=== PATIENT | male | born 1955 | race Caucasian/White ===

== ENCOUNTER 2019-11-28 17:40 | Inpatient (IN) | payer OTHER, MEDICARE, SELFPAY ==
[2019-11-28] VITALS (9 sets, daily range): BP systolic 145–165; BP diastolic 70–87; PULSE 62–70; RESP 22–40; TEMP 37.5–38.4; O2SAT 94–95; BMI 29.7
[2019-11-28] MEDS: SODIUM CHLORIDE 0.9% 1,000 ML 1000 ML IV (18:05)
--- NOTE | 2019-11-28 18:10 | DI.RAD.S_ITS ---
PROCEDURE: XR CHEST 1V INDICATIONS: suspected sepsis TECHNIQUE: One view of the chest was acquired. COMPARISON: None. FINDINGS: Surgical changes and devices: None. Lungs and pleura: Lungs are clear. No pleural effusions or pneumothorax. Mediastinum: Mediastinal contours appear normal. Heart size is normal. Bones and chest wall: No suspicious bony lesions. Overlying soft tissues appear unremarkable. IMPRESSION: No acute cardiopulmonary disease process. Dictated by: Adeola Hercules MD, PhD on 11/28/2019 at 18:27 Approved by: Adeola Hercules MD, PhD on 11/28/2019 at 18:27
[2019-11-28 18:18] LABS: Add Manual Diff / Slide Review NO; Basophils Absolute Auto 0 /uL (0-100); Basophils Percent Auto 0.9 % (0-2); Eosinophils Absolute Auto 0 /uL (0-450); Eosinophils Percent Auto 0.3 % (2-4); Hematocrit 48.9 % (41-53); Lymphocytes Absolute Auto 1000 /uL (1100-4500); Lymphocytes Percent Auto 23.2 % (25-40); Mean Corpuscular HGB Conc 34.7 % (30-36); Mean Corpuscular Hemoglobin 33.2 PG (26-34); Mean Corpuscular Volume 95.9 fL (80-100); Monocytes Absolute Auto 400 /uL (0-900); Monocytes Percent Auto 8.8 % (3-14); Neutrophils Absolute Auto 2900 /uL (1500-7000); Neutrophils Percent Auto 66.8 % (50-75); Platelet Count 108 X10^3/uL (150-400); Red Cell Distribution Width 12.5 % (11.6-14.8); White Blood Cell Count 4.4 X10^3/uL (4.5-11.0)
[2019-11-28 18:22] LABS: INR 1.1 (0.9-1.3); Prothrombin Time 12.9 SECONDS (10.1-12.7)
--- NOTE | 2019-11-28 18:22 | ED_ITS ---
HPI - SOB/Dyspnea General Chief Complaint: Shortness of Breath/Dyspnea Stated Complaint: Exposed to Covid 19, SOB/Cough/Fever Time Seen by Provider: 11/28/19 18:05 Source: patient Mode of arrival: Ambulatory Limitations: no limitations History of Present Illness HPI Narrative: This is a 64-year-old male comes to the emergency department complaint of fevers, shortness of breath and cough patient states he has had i ncreasing shortness of breath over last 2 days. He describes mild states he has noticed he has take a deeper breath and when he is talking on the phone people have noted that he is short of breath. He has had fevers up to 102 over the last several days. He has had 2 positive coronavirus 19 contacts. Patient states that he is had some mild headaches, he has had mild nasal congestion but states he typically has seasonal allergies, he has been taking loratadine for this. Patient has not had any chest pain. He has had some mild nausea. No vomiting. Some very mild diarrhea. No constipation urinary a poor he denies any swelling in his extremities. He states his only medical issues or seasonal allergies, denies prior surgical history. No tobacco, 2-3 glasses of wine nightly, no illicit. He is and lives with his . Related Data Home Medications Medication Instructions Recorded Confirmed acetaminophen [Tylenol] 650 mg PO QID PRN 11/28/19 11/28/19 ibuprofen 600 mg PO Q8H PRN 11/28/19 11/28/19 Allergies Allergy/AdvReac Type Severity Reaction Status Date / Time bacitracin Allergy Mild Rash Verified 11/28/19 18:14 Review of Systems Review of Systems ROS Unobtainable: All systems reviewed & are unremarkable except as noted in HPI and below Patient History Medical History (Updated 11/28/19 @ 20:54 by Ned Johnson MD) History of skin cancer (Acute) Seasonal allergies (Acute) Surgical History (Updated 11/28/19 @ 20:54 by Ned Johnson MD) History of laminectomy (Acute) History of tonsillectomy (Acute) Family History (Updated 11/28/19 @ 20:55 by Ned Johnson MD) Father Alcoholism Mother Diabetes mellitus Social History household members: spouse Smoking Status: Never smoker Smoking Status: Never smoker alcohol intake frequency: 0-2 drinks per day Substance Use Type: does not use Exam Narrative Exam Narrative: GEN: well nourished, male, alert and oriented x 3, patient appears to be in moderate distress. HEENT: Atraumatic, pupils are equal round reactive to light, extraocular movements are intact. HEART: Regular rate and rhythm without murmur, clicks, rubs. No carotid bruits, pulses are equal in upper and lower extremities LUNGS:Lungs mildly decreased, no wheezes, rales, crackles, chest moves symmetrically, positive for tachypnea. No accessory muscle use. ABD:bowel sounds normal, soft, non-tender, no guarding, rebound, rigidity, no masses noted, no hepatosplenomegaly :No CVA tenderness MSCL: Non-tender, no muscle atrophy, muscles strength 5/5 upper and lower extremities, full range of motion, normal gait NEURO:CN 2-12 intact, sensation normal SKIN: Rash, no erythema. Initial Vital Signs Initial Vital Signs: Vital Signs Temperature 99.5 F 11/28/19 17:41 Pulse Rate 67 11/28/19 17:41 Respiratory Rate 40 H 11/28/19 17:41 Blood Pressure 165/87 H 11/28/19 17:41 Pulse Oximetry 95 11/28/19 17:41 Scores PERC Score Age greater than or equal to 50 years: Yes Heart rate greater than or equal to 100 bpm: No Room Air O2 Sat less than 95%: No Unilateral leg swelling: No Recent trauma or surgery: No Hemoptysis: No Prior PE or DVT: No Hormone Use: No Total PERC Score: 1 Course Orders Ordered: ED Orders 11/28/19 18:00 BNP [NT-proBNP (BNP-Adult 18+)] Stat C-Reactive Protein Quant Stat Complete Blood Count AUTO DIFF Stat Comprehensive Metabolic Panel Stat Influenza A & B (PCR) Stat Lactate (Lactic Acid) Stat Lipase Stat Partial Thromboplastin Time Stat Procalcitonin Stat Prothrombin Time INR Stat Troponin & CK Cardiac Panel Stat 11/28/19 18:05 Blood Culture Stat 11/28/19 18:10 XR chest 1V Stat RT Consult Eval and Treat Now 11/28/19 18:24 EKG-12 Lead Stat 11/28/19 18:55 CT angio chest PE protocol Stat Acetaminophen (Tylenol) 650 mg PO Q6HR PRN PRN Reason: Fever/Mild Pain (1-3) Enoxaparin Sodium (Lovenox) [address] [facility] Hydroxychloroquine Sulfate (Plaquenil) 200 mg PO BIDWM MOSES Sodium Chloride (Normal Saline 0.9%) 1,000 mls @ 50 mls/hr IV CONT MOSES Last Admin: 11/28/19 21:41 Dose: 50 mls/hr Documented by: CHAN Naloxone HCl (Narcan) 0.2 mg IV Q2MIN PRN PRN Reason: Opiate Reversal Discontinued Medications Acetaminophen (Tylenol) 650 mg PO NOW ONE Stop: 11/28/19 19:47 Last Admin: 11/28/19 19:52 Dose: 650 mg Documented by: TANVI Sodium Chloride (Normal Saline 0.9%) 1,000 mls @ 1,000 mls/hr IV BOLUS ONE Stop: 11/28/19 19:09 Last Infusion: 11/28/19 19:10 Dose: 0 mls/hr Documented by: Admin: 11/28/19 18:05 Dose: 1,000 mls/hr Documented by: TANVI Vital Signs Vital signs: Vital Signs - 8 hr 11/28/19 17:41 11/28/19 18:19 11/28/19 18:36 Temperature 99.5 F Pulse Rate 67 70 63 Respiratory Rate 40 H 38 H 34 H Blood Pressure 165/87 H Blood Pressure [Left Arm] 146/73 H Pulse Oximetry 95 94 94 11/28/19 19:08 11/28/19 19:30 11/28/19 19:52 Temperature 99.5 F Pulse Rate 66 62 Respiratory Rate 36 H 32 H Blood Pressure Blood Pressure [Left Arm] 154/70 H 152/70 H Pulse Oximetry 95 95 MDM - SOB/Dyspnea Lab Data Attestation: I reviewed the patient's lab results. Result diagrams: 11/28/19 18:00 11/28/19 18:00 Labs: Lab Results 11/28/19 11/28/19 11/28/19 Range/Units 18:00 18:00 18:00 WBC 4.4 L (4.5-11.0) X10^3/uL RBC 5.10 (4.5-5.9) X10^6/uL Hgb 17.0 (13.5-17.5) g/dL Hct 48.9 (41-53) % MCV 95.9 (80-100) fL MCH 33.2 (26-34) PG MCHC 34.7 (30-36) % RDW 12.5 (11.6-14.8) % Plt Count 108 L (150-400) X10^3/uL Neut % (Auto) 66.8 (50-75) % Lymph % (Auto) 23.2 L (25-40) % [place] % (Auto) 8.8 (3-14) % Eos % (Auto) 0.3 L (2-4) % Baso % (Auto) 0.9 (0-2) % Neut # (Auto) 2900 (7264-7130) /uL Lymph # (Auto) 1000 L (3015-8244) /uL [place] # (Auto) 400 (0-900) /uL Eos # (Auto) 0 (0-450) /uL Baso # (Auto) 0 (0-100) /uL PT 12.9 H (10.1-12.7) SECONDS INR 1.1 (0.9-1.3) APTT 33 (26.4-36.2) SECONDS Sodium 133 L (137-145) mmol/L Potassium 4.2 (3.4-5.1) mmol/L Chloride 96 L (98-107) mmol/L Carbon Dioxide 26 (22-32) mmol/L BUN 11 (9-20) mg/dL Creatinine 0.94 (0.66-1.25) mg/dL Estimated GFR > 60.0 (>60) mL/min BUN/Creatinine Ratio 11.7 (6-22) Glucose 108 (80-110) mg/dL Lactate (0.7-2.1) mmol/L Calcium 8.5 (8.4-10.2) mg/dL Total Bilirubin 0.5 (0.2-1.3) mg/dL AST 82 H (17-59) IU/L ALT 48 (<50) IU/L Alkaline Phosphatase 52 (38-126) U/L Total Creatine Kinase 333 H (55-170) U/L CK-MB (CK-2) 1.00 (<2.37) ng/mL CK-MB (CK-2) Rel Index 0.3 L (1.5-5.0) % Troponin I < 0.012 (0.01-0.034) ng/mL C-Reactive Protein 4.3 H (<1.0) mg/dL NT-Pro-B Natriuret Pep 50 (<125) pg/mL Total Protein 7.7 (6.3-8.2) g/dL Albumin 4.4 (3.5-5.0) g/dL Globulin 3.3 (1.7-4.1) g/dL Albumin/Globulin Ratio 1.3 (1.0-2.8) Lipase 107 (23-300) U/L Procalcitonin (<0.5) ng/mL Influenza A (RT-PCR) (NEGATIVE) Influenza B (RT-PCR) (NEGATIVE) 11/28/19 11/28/19 11/28/19 Range/Units 18:00 18:00 18:00 WBC (4.5-11.0) X10^3/uL RBC (4.5-5.9) X10^6/uL Hgb (13.5-17.5) g/dL Hct (41-53) % MCV (80-100) fL MCH (26-34) PG MCHC (30-36) % RDW (11.6-14.8) % Plt Count (150-400) X10^3/uL Neut % (Auto) (50-75) % Lymph % (Auto) (25-40) % [place] % (Auto) (3-14) % Eos % (Auto) (2-4) % Baso % (Auto) (0-2) % Neut # (Auto) (8131-9952) /uL Lymph # (Auto) (0085-2490) /uL [place] # (Auto) (0-900) /uL Eos # (Auto) (0-450) /uL Baso # (Auto) (0-100) /uL PT (10.1-12.7) SECONDS INR (0.9-1.3) APTT (26.4-36.2) SECONDS Sodium (137-145) mmol/L Potassium (3.4-5.1) mmol/L Chloride (98-107) mmol/L Carbon Dioxide (22-32) mmol/L BUN (9-20) mg/dL Creatinine (0.66-1.25) mg/dL Estimated GFR (>60) mL/min BUN/Creatinine Ratio (6-22) Glucose (80-110) mg/dL Lactate 1.1 (0.7-2.1) mmol/L Calcium (8.4-10.2) mg/dL Total Bilirubin (0.2-1.3) mg/dL AST (17-59) IU/L ALT (<50) IU/L Alkaline Phosphatase (38-126) U/L Total Creatine Kinase (55-170) U/L CK-MB (CK-2) (<2.37) ng/mL CK-MB (CK-2) Rel Index (1.5-5.0) % Troponin I (0.01-0.034) ng/mL C-Reactive Protein (<1.0) mg/dL NT-Pro-B Natriuret Pep (<125) pg/mL Total Protein (6.3-8.2) g/dL Albumin (3.5-5.0) g/dL Globulin (1.7-4.1) g/dL Albumin/Globulin Ratio (1.0-2.8) Lipase (23-300) U/L Procalcitonin 0.08 (<0.5) ng/mL Influenza A (RT-PCR) Flu a negative (NEGATIVE) Influenza B (RT-PCR) Flu b negative (NEGATIVE) Imaging Data Chest x-ray: Radiologist's Impression: [address] [address] XRay Report Signed Patient: Vlad Gan Mira#: [id number] : 3Acct:[id number] Age/Sex: 64 / MDate of Service: 11/28/19 Loc: ED Accession Number: [id number] Procedure: XR chest 1V Ordering Provider: Fanta Pennington D.O. PROCEDURE: XR CHEST 1V INDICATIONS: suspected sepsis TECHNIQUE: One view of the chest was acquired. COMPARISON: None. FINDINGS: Surgical changes and devices: None. Lungs and pleura: Lungs are clear. No pleural effusions or pneumothorax. Mediastinum: Mediastinal contours appear normal. Heart size is normal. Bones and chest wall: No suspicious bony lesions. Overlying soft tissues ap pear unremarkable. IMPRESSION: No acute cardiopulmonary disease process. Dictated by: Adeola Hercules MD, PhD on 11/28/2019 at 18:27 Approved by: Adeola Hercules MD, PhD on 11/28/2019 at 18:27 CT scan - chest: Radiologist's Impression: [address] [address] [address] Scan Report Signed Patient: Vlad Gan JMR#: [id number] : 3Acct:[id number] Age/Sex: 64 / MDate of Service: 11/28/19 Loc: ED Accession Number: [id number] Procedure: CT angio chest PE protocol Ordering Provider: Fanta Pennington D.O. PROCEDURE: CT ANGIO CHEST PE PROTOCOL INDICATIONS: sob, tachypnea, travel, covid vs pe TECHNIQUE: After the administration of intravenous contrast, 2 mm thick sections acquired from the pulmonary apices to the posterior costophrenic angles. 3-dimensional maximum intensity projection (MIP) coronal and sagittal reformats were then acquired through the thorax. For radiation dose reduction, the following was used: automated exposure control, adjustment of mA and/or kV according to patient size. COMPARISON: None. FINDINGS: Image quality: Excellent. Pulmonary arteries: Pulmonary arteries are normal in size, and demonstrate no intraluminal filling defects to suggest central pulmonary embolism. Lungs and pleura: Multiple groundglass opacities are noted in the lungs bilaterally. Several of the groundglass opacities and associated interstitial prominence. Several of the groundglass opacities a rounded contours. Groundglass opacities are probably peripheral. No pleural effusions or pneumothorax. Central and peripheral airways are patent. Mediastinum: Heart size is normal, without pericardial effusion. No mediastinal or hilar adenopathy. Thoracic aorta is normal in caliber and enhancement. Esophagus is normal in caliber, without hiatal hernia. Bones and chest wall: No suspicious bony lesions. Ribs and thoracic spine appear intact throughout. Thyroid gland is within normal limits. No axillary or supraclavicular adenopathy. Abdomen: Visualized upper abdominal solid organs appear normal in the early arterial phase of enhancement. IMPRESSION: 1. No pulmonary embolus. 2. Multiple bilateral lung groundglass opacities with scattered in radiograph appearance concerning for Covid-19 pneumonia. Dictated by: Adeola Hercules MD, PhD on 11/28/2019 at 19:18 Approved by: Adeola Hercules MD, PhD on 11/28/2019 at 19:24 ECG Data Attestation: I personally reviewed and interpreted this ECG as follows: Prior ECG tracings: not available for review Interpretation: Sinus rhythm with a rate of 67 P are 158 QRS of 92 and QTC of 420. No ST elevation, nonspecific change. MDM Narrative Medical decision making narrative: This is a 64-year-old male who comes in with complaint of fever, shortness of breath and positive coronavirus-19 contacts. Initial chest x-ray is negative. Patient is afebrile in the department but states that he had antipyretic several hours prior to arrival. He states that he had been in [place] recently with travel. My suspicion is that patient has coronavirus 19 his shortness of breath and tachypnea but with his recent travel plan for CT study for PE rule out. Patient's labs show leukopenia with low lymphocyte count. Platelets are 108, sodium is 133 with chloride of 96 and AST is 82 creatinine and electrolytes are otherwise normal. CK is 333 with a C- reactive protein elevated 4.3. Stroke is negative with no acute findings on EKG and procalcitonin is negative. Blood cultures are pending. Influenza is negative and coronavirus testing is pending and will likely be several days before resulted. Although patient's CT does show suspicious bilateral pneumonia consistent with a coronavirus [address] Johnson regarding suspected coronavirus pneumonia, the patient does have pneumonia on CT although not seen on CXR, he has not been hypoxic but he has been tachypneic throughout his stay typically in the 30-40 range which makes me concerned that patient could have a acute decompensation. He accepts plan for observation. Patient was updated and comfortable with the plan. We did review patient's POLST status and he is full code. Discharge Plan Departure Patient Disposition: Admitted as Observation Clinical Impression: Suspected 2019 novel coronavirus infection Pneumonia Qualifiers: Pneumonia type: due to unspecified organism Laterality: bilateral Discharge Date/Time: 11/28/19 20:32 Admit Date/Time: 11/28/19 20:03 Admit Provider: Ned Johnson
[2019-11-28 18:25] LABS: PTT Partial Thromboplastin Tim 33 SECONDS (26.4-36.2)
[2019-11-28 18:27] LABS: Lactate (Lactic Acid) 1.1 mmol/L (0.7-2.1)
[2019-11-28 18:31] LABS: Alanine Aminotransferase 48 IU/L (<50); Albumin 4.4 g/dL (3.5-5.0); Albumin Globulin Ratio 1.3 (1.0-2.8); Alkaline Phosphatase 52 U/L (38-126); Aspartate Aminotransferase 82 IU/L (17-59); BUN Creatinine Ratio 11.7 (6-22); Bilirubin Total 0.5 mg/dL (0.2-1.3); Blood Urea Nitrogen 11 mg/dL (9-20); C-Reactive Protein Quant 4.3 mg/dL (<1.0); Calcium 8.5 mg/dL (8.4-10.2); Carbon Dioxide 26 mmol/L (22-32); Chloride 96 mmol/L (98-107); Creatine Kinase 333 U/L (55-170); Estimated Glomerular Filt Rate > 60.0 mL/min (>60); Globulin 3.3 g/dL (1.7-4.1); Glucose 108 mg/dL (80-110); HEMOLYSIS 16 (0-50); Lipase 107 U/L (23-300); Potassium 4.2 mmol/L (3.4-5.1); Sodium 133 mmol/L (137-145); Total Protein 7.7 g/dL (6.3-8.2)
[2019-11-28 18:40] LABS: Troponin I < 0.012 ng/mL (0.01-0.034)
[2019-11-28 18:43] LABS: Procalcitonin 0.08 ng/mL (<0.5)
[2019-11-28 18:44] LABS: NT-proBNP (BNP-Adult 18+) 50 pg/mL (<125)
[2019-11-28 18:55] LABS: Influenza A - CEPHEID Flu A NEGATIVE (NEGATIVE); Influenza B - CEPHEID Flu B NEGATIVE (NEGATIVE)
--- NOTE | 2019-11-28 18:55 | DI.CT.S_ITS ---
PROCEDURE: CT ANGIO CHEST PE PROTOCOL INDICATIONS: sob, tachypnea, travel, covid vs pe TECHNIQUE: After the administration of intravenous contrast, 2 mm thick sections acquired from the pulmonary apices to the posterior costophrenic angles. 3-dimensional maximum intensity projection (MIP) coronal and sagittal reformats were then acquired through the thorax. For radiation dose reduction, the following was used: automated exposure control, adjustment of mA and/or kV according to patient size. COMPARISON: None. FINDINGS: Image quality: Excellent. Pulmonary arteries: Pulmonary arteries are normal in size, and demonstrate no intraluminal filling defects to suggest central pulmonary embolism. Lungs and pleura: Multiple groundglass opacities are noted in the lungs bilaterally. Several of the groundglass opacities and associated interstitial prominence. Several of the groundglass opacities a rounded contours. Groundglass opacities are probably peripheral. No pleural effusions or pneumothorax. Central and peripheral airways are patent. Mediastinum: Heart size is normal, without pericardial effusion. No mediastinal or hilar adenopathy. Thoracic aorta is normal in caliber and enhancement. Esophagus is normal in caliber, without hiatal hernia. Bones and chest wall: No suspicious bony lesions. Ribs and thoracic spine appear intact throughout. Thyroid gland is within normal limits. No axillary or supraclavicular adenopathy. Abdomen: Visualized upper abdominal solid organs appear normal in the early arterial phase of enhancement. IMPRESSION: 1. No pulmonary embolus. 2. Multiple bilateral lung groundglass opacities with scattered in radiograph appearance concerning for Covid-19 pneumonia. Dictated by: Adeola Hercules MD, PhD on 11/28/2019 at 19:18 Approved by: Adeola Hercules MD, PhD on 11/28/2019 at 19:24
[2019-11-28 18:56] LABS: CKMB % Relative Index 0.3 % (1.5-5.0)
[2019-11-28] MEDS: ACETAMINOPHEN 325 MG TABLET 650 MG PO (19:52)
--- NOTE | 2019-11-28 20:48 | PM.HP.1 ---
History of Present Illness History of Present Illness Date Patient Seen: 11/28/19 Time Patient Seen: 20:48 Chief complaint: Exposed to Covid 19, SOB/Cough/Fever Narrative: This is a 64 year old male with a fever of 104.3 and shortness of breath. He has had 2 direct Covid19 exposures this past week. At baseline he is quite healthy with only seasonal allergies and allergy medicines used prn. He lives during the week in [place] where he works for the [employer] and then on the weekend lives up here. During the last week he has been exposed to 2 cases of suspected Covid19 including his (mild symptoms) who participated in a choir practice that has led to at least 30 positive doss virus tests and 1 earlier today. He also was exposed through a contractor who's child apparently had the disease this last week. He developed a fever of 104. 3 on November 15 with the 1st symptom being runny nose and just a very mild cough. He presented to the emergency department today because he was becoming more short of breath. His CRP is 4.3 with a classic ground-glass appearance on the chest CT. He is at 95% on room air but appears to be mildly dyspneic and tachypneic in the 30-40 range on presentation. His white count is 4.4 with negative influenza testing and a procalcitonin of 0.08. The CRP is elevated at 4.3. Patient History Medical History (Updated 11/28/19 @ 20:54 by Ned Johnson MD) History of skin cancer (Acute) Seasonal allergies (Acute) Surgical History (Updated 11/28/19 @ 20:54 by Ned Johnson MD) History of laminectomy (Acute) History of tonsillectomy (Acute) Family & Social History Family History (Updated 11/28/19 @ 20:55 by Ned Johnson MD) Father Alcoholism Mother Diabetes mellitus Family history unavailable: No Safety & Behavioral: Feels Safe in Current Yes Environment Been Physically Hurt or No Threatened By a Person Tobacco & Substance use: Smoking Status Never smoker alcohol intake frequency 0-2 drinks per day Substance Use Type does not use Meds Home Medications and Allergies Home Medications Medication Instructions Recorded Confirmed Type acetaminophen [Tylenol] 650 mg PO QID PRN 11/28/19 11/28/19 History ibuprofen 600 mg PO Q8H PRN 11/28/19 11/28/19 History Allergies Allergy/AdvReac Type Severity Reaction Status Date / Time bacitracin Allergy Mild Rash Verified 11/28/19 18:14 Review of Systems Review of Systems Narrative: Positive for high fevers, shortness of breath and a mild cough. Negative for chest pain, nausea, vomiting, belly pain, bleeding, rash, dysuria, headaches, seizures, diarrhea, trouble talking, trouble walking, new allergies. ROS: Yes All systems reviewed with the patient and are negative except as otherwise documented Exam Vital Signs (past 8 hours): - 11/28/19 17:41 11/28/19 18:19 11/28/19 18:36 Temperature 99.5 F Pulse Rate 67 70 63 Respiratory Rate 40 H 38 H 34 H Blood Pressure 165/87 H Blood Pressure [Left Arm] 146/73 H Pulse Oximetry 95 94 94 11/28/19 19:08 11/28/19 19:30 11/28/19 19:52 Temperature 99.5 F Pulse Rate 66 62 Respiratory Rate 36 H 32 H Blood Pressure Blood Pressure [Left Arm] 154/70 H 152/70 H Pulse Oximetry 95 95 11/28/19 20:07 Temperature Pulse Rate 66 Respiratory Rate 27 H Blood Pressure Blood Pressure [Left Arm] 154/72 H Pulse Oximetry 94 Oxygen Delivery Method Room Air Narrative Exam Narrative: Alert and oriented X 3 with moderately increased respiratory effort/distress. Intervals are equally round reactive to light and accommodation. Extraocular muscles are intact. Sclerae are pink and nonicteric. No lymph nodes are felt head, neck, supraclavicular area. JVD is less than 6 cm. No carotid bruits are heard. There is no thyromegaly. Heart is regular rate and rhythm without murmur. Lungs are clear to auscultation bilaterally. Abdomen is soft, bowel sounds positive, nontender, no organomegaly. Extremities have no ankle edema. Skin has no rash or jaundice. Neuro exam. Cranial nerves 2-12 tested intact. There is no tremor. Motor function is 5/5 throughout. There is no asterixis or signs of tremor/withdrawal. Objective Labs Result Diagrams: 11/28/19 18:00 11/28/19 18:00 Labs: Laboratory Results - last 24 hr 11/28/19 11/28/19 11/28/19 18:00 18:00 18:00 WBC 4.4 L RBC 5.10 Hgb 17.0 Hct 48.9 MCV 95.9 MCH 33.2 MCHC 34.7 RDW 12.5 Plt Count 108 L Neut % (Auto) 66.8 Lymph % (Auto) 23.2 L [place] % (Auto) 8.8 Eos % (Auto) 0.3 L Baso % (Auto) 0.9 Neut # (Auto) 2900 Lymph # (Auto) 1000 L [place] # (Auto) 400 Eos # (Auto) 0 Baso # (Auto) 0 PT 12.9 H INR 1.1 APTT 33 Sodium 133 L Potassium 4.2 Chloride 96 L Carbon Dioxide 26 BUN 11 Creatinine 0.94 Estimated GFR > 60.0 BUN/Creatinine Ratio 11.7 Glucose 108 Lactate Calcium 8.5 Total Bilirubin 0.5 AST 82 H ALT 48 Alkaline Phosphatase 52 Total Creatine Kinase 333 H CK-MB (CK-2) 1.00 CK-MB (CK-2) Rel Index 0.3 L Troponin I < 0.012 C-Reactive Protein 4.3 H NT-Pro-B Natriuret Pep 50 Total Protein 7.7 Albumin 4.4 Globulin 3.3 Albumin/Globulin Ratio 1.3 Lipase 107 Procalcitonin Influenza A (RT-PCR) Influenza B (RT-PCR) 11/28/19 11/28/19 11/28/19 18:00 18:00 18:00 WBC RBC Hgb Hct MCV MCH MCHC RDW Plt Count Neut % (Auto) Lymph % (Auto) [place] % (Auto) Eos % (Auto) Baso % (Auto) Neut # (Auto) Lymph # (Auto) [place] # (Auto) Eos # (Auto) Baso # (Auto) PT INR APTT Sodium Potassium Chloride Carbon Dioxide BUN Creatinine Estimated GFR BUN/Creatinine Ratio Glucose Lactate 1.1 Calcium Total Bilirubin AST ALT Alkaline Phosphatase Total Creatine Kinase CK-MB (CK-2) CK-MB (CK-2) Rel Index Troponin I C-Reactive Protein NT-Pro-B Natriuret Pep Total Protein Albumin Globulin Albumin/Globulin Ratio Lipase Procalcitonin 0.08 Influenza A (RT-PCR) Flu a negative Influenza B (RT-PCR) Flu b negative Assessment & Plan Assessment & Plan narrative: Viral Pneumonitis, Presumed Covid 19, acute, present on admission - Continue close oxygen monitoring, begin on Plaquenil, Covid swab done - With his classic CT appearance and his multiple direct exposures he is unlikely to be negative for Covid 19 and in fact a negative result should probably be considered a false negative. - If he deteriorates he would be placed on high flow oxygen as a first step. He is full code. - Respiratory isolation and precautions - Multiple bilateral ground glass opacities on Chest CT with negative CXR 11/27. - CRP 4.3, repeat 12/29 - Influenza A and B swabs are negative -despite his lack of hypoxia he appears to be significantly more short of breath today and so is not considered safe for discharge home at this time. Daily Alcohol use, chronic, present on admission - Watch closely for alcohol withdrawal
--- NOTE | 2019-11-28 21:22 | PC.NURSE ---
2100 Pt arrived via wheelchair, was able to ambulate to bed. Introduced myself as primary nurse in care. Vitals taken, pt oriented to room and call light. Cooling measures, with cool cloth on head and axillary ice packs, bilaterally. Pt requests to be able to sleep. Bed low and locked, call light within reach, will continue to monitor.
[2019-11-28] MEDS: SODIUM CHLORIDE 0.9% 1,000 ML 50 ML IV (21:41)
[2019-11-29] VITALS (10 sets, daily range): BP systolic 105–129; BP diastolic 56–78; PULSE 52–60; RESP 18–30; TEMP 36.9–37.7; O2SAT 93–98
[2019-11-29 05:05] LABS: Add Manual Diff / Slide Review NO; Basophils Absolute Auto 0 /uL (0-100); Basophils Percent Auto 0.8 % (0-2); Eosinophils Absolute Auto 0 /uL (0-450); Eosinophils Percent Auto 0.1 % (2-4); Hematocrit 46.2 % (41-53); Hemoglobin 15.9 g/dL (13.5-17.5); Lymphocytes Absolute Auto 1500 /uL (1100-4500); Lymphocytes Percent Auto 35.5 % (25-40); Mean Corpuscular HGB Conc 34.4 % (30-36); Mean Corpuscular Hemoglobin 32.9 PG (26-34); Mean Corpuscular Volume 95.8 fL (80-100); Monocytes Absolute Auto 400 /uL (0-900); Monocytes Percent Auto 10.7 % (3-14); Neutrophils Absolute Auto 2200 /uL (1500-7000); Neutrophils Percent Auto 52.9 % (50-75); Platelet Count 92 X10^3/uL (150-400); Red Blood Cell Count 4.83 X10^6/uL (4.5-5.9); Red Cell Distribution Width 12.6 % (11.6-14.8); White Blood Cell Count 4.1 X10^3/uL (4.5-11.0)
[2019-11-29 05:18] LABS: Alanine Aminotransferase 56 IU/L (<50); Albumin 3.7 g/dL (3.5-5.0); Albumin Globulin Ratio 1.3 (1.0-2.8); Alkaline Phosphatase 40 U/L (38-126); Aspartate Aminotransferase 89 IU/L (17-59); BUN Creatinine Ratio 9.4 (6-22); Bilirubin Total 0.5 mg/dL (0.2-1.3); Blood Urea Nitrogen 9 mg/dL (9-20); C-Reactive Protein Quant 4.4 mg/dL (<1.0); Calcium 8.3 mg/dL (8.4-10.2); Carbon Dioxide 28 mmol/L (22-32); Chloride 101 mmol/L (98-107); Estimated Glomerular Filt Rate > 60.0 mL/min (>60); Globulin 2.8 g/dL (1.7-4.1); Glucose 101 mg/dL (80-110); HEMOLYSIS < 15 (0-50); Potassium 4.7 mmol/L (3.4-5.1); Sodium 135 mmol/L (137-145); Total Protein 6.5 g/dL (6.3-8.2)
[2019-11-29 05:27] LABS: Troponin I 0.024 ng/mL (0.01-0.034)
--- NOTE | 2019-11-29 06:43 | PC.NURSE ---
Door Worker Note-Patient remains tachypneic with RR in 20s-30s, SpO2 >92% while awake, but decreased to <90% while asleep, placed on 2L NC from 0120 to 0500, intermittent non-productive cough, fine crackles auscultated throughout lungs. SB/SR, BBB. Tylenol given at midnight for headache and temp 99.6, temp in am 98.6, says headache has improved. In Droplet precautions.
[2019-11-29] MEDS: HYDROXYCHLOROQUINE 200 MG TABLET PO ×2 (08:38→18:00)
[2019-11-29] MEDS: ENOXAPARIN 40 MG/0.4 ML SYRINGE SUBCUT (08:38)
[2019-11-29] MEDS: ACETAMINOPHEN 325 MG TABLET 650 MG PO ×3 (08:38→18:00)
--- NOTE | 2019-11-29 08:42 | CM.DANOTE ---
DCP: Case received, EMR reviewed and looked at recent notes. Patient is currently in isolation secondary to COVD-19 rule out. Was able to obtain information from EMR in order to complete DCP assessment. Assessment was completed with information currently available. Patient s a 64 year old male who admitted yesterday evening to the care of the hospitalist team. PCP: Patient is from [place], unknown at this time who PCP is. Payer: [facility]. Patient came to the hospital via private vehicle secondary to cough, fever, as well as shortness of breath. Patient holds current diagnosis of pneumonia, which showed up on C.T. scan, and is also here for potential complications of COVID-19. Results are pending. Patient has been exposed to two other individuals with COVID-19, one who is his . Patient works in [place], for the city, and comes up here on week-ends. His was exposed to COVID-19, while singing in her choir, and according to notes, she had mild symptoms. Looking at the history, patient is alert and oriented, independent, does drink daily alcohol. P: DCP to continue to follow closely. Patient is here being monitored for any respiratory complications. He should be able to go home when he is medically stable, and will need to self-isolate. Amalia Garcia RN/Estimating Engineer
[2019-11-29] MEDS: AZITHROMYCIN 500 MG in DEXTROSE 5% IN WATER 250 ML IV (09:39)
[2019-11-29 11:09] LABS: Adenovirus Not Detected (Not Detect); Bordetella pertussis Not Detected (Not Detect); Chlamydophila pneumoniae Not Detected (Not Detect); Coronavirus 229E Not Detected (Not Detect); Coronavirus HKU1 Not Detected (Not Detect); Coronavirus NL 63 Not Detected (Not Detect); Coronavirus OC43 Not Detected (Not Detect); Human Metapneumovirus Not Detected (Not Detect); Human Rhinovirus/Enterovirus Not Detected (Not Detect); Influenza A Not Detected (Not Detect); Influenza B Not Detected (Not Detect); Mycoplasma pneumoniae Not Detected (Not Detect); Parainfluenza Virus 1 Not Detected (Not Detect); Parainfluenza Virus 2 Not Detected (Not Detect); Parainfluenza Virus 3 Not Detected (Not Detect); Parainfluenza Virus 4 Not Detected (Not Detect); Respiratory Syncytial Virus Not Detected (Not Detect)
--- NOTE | 2019-11-29 18:37 | PM.PN.1 ---
Subjective Subjective Date Patient Seen: 11/29/19 Interval history: Vlad Gan is a 64-year-old male without any significant medical history other than seasonal allergies who presented to the ED for shortness of breath and fever with to known exposures to COVID-19. The patient is resting in bed and in no acute distress. He is no longer severely tachypneic. He continues to endosrse itchy throat, shortness of breath and mildly productive cough. He is fatigued and has myalgias. He appears to be splinting. He is no longer febrile. He has no other complaints and denies headache, chest pain, abdominal pain, nausea, vomiting, fever, chills, dysuria, diarrhea or constipation. He is voiding and eliminating without difficulty. Exam Vital Signs (past 8 hours): - 11/29/19 12:00 11/29/19 15:54 11/29/19 18:00 Temperature 99.6 F 98.5 F 99.3 F Pulse Rate 55 L 53 L Respiratory Rate 20 30 H Blood Pressure 112/56 L 126/76 Pulse Oximetry 93 98 Oxygen Delivery Method Room Air Oxygen Flow Rate 0 Narrative Exam Narrative: General: Older male lying in bed and in no acute distress, appears older than stated age and acutely ill, mildly flushed, well-developed, well-nourished, appropriately interactive. HEENT: Normocephalic, atraumatic. External ears without defect. Pupils equal, round, and reactive to light. Anicteric sclerae, moist conjunctivae, and no lid lag. Oropharynx free of erythema and cobble stoning with moist mucosa. Neck: Supple with full range of motion. No lymphadenopathy or thyromegaly. Cardiovascular: Regular rate and rhythm without murmurs, rubs, or gallops appreciated Pulmonary: Diminished throughout but clear to auscultation bilaterally with occasional wheeze. No crackles or rhonchi. Normal respiratory effort with no use of accessory muscles. Abdomen: Soft, bowel sounds present, nontender, nondistended. No hepatosplenomegaly or masses appreciated. Extremities: No clubbing, cyanosis, or edema. Skin: Normal temperature, turgor, and texture; no rash, ulcers, or subcutaneous nodules appreciated. Neurological: Cranial nerves grossly intact. Psychiatric: Normal mood and affect. Alert and oriented to person, place, and time. Objective Labs Result Diagrams: 11/30/19 04:36 11/30/19 04:36 Labs: Laboratory Results - last 24 hr 11/28/19 11/28/19 11/28/19 18:00 18:00 18:00 WBC RBC Hgb Hct MCV MCH MCHC RDW Plt Count Neut % (Auto) Lymph % (Auto) [place] % (Auto) Eos % (Auto) Baso % (Auto) Neut # (Auto) Lymph # (Auto) [place] # (Auto) Eos # (Auto) Baso # (Auto) Sodium Potassium Chloride Carbon Dioxide BUN Creatinine Estimated GFR BUN/Creatinine Ratio Glucose Calcium Total Bilirubin AST ALT Alkaline Phosphatase CK-MB (CK-2) 1.00 CK-MB (CK-2) Rel Index 0.3 L Troponin I < 0.012 C-Reactive Protein NT-Pro-B Natriuret Pep 50 Total Protein Albumin Globulin Albumin/Globulin Ratio Procalcitonin 0.08 Chlamy pneumoniae PCR Adenovirus (PCR) B.parapertussis DNA PCR Coronavirus OC43 (PCR) Coronavirus HKU1 (PCR) Coronavirus 229E (PCR) Coronavirus NL63 (PCR) Human Metapneumovir PCR Influenza A (RT-PCR) Flu a negative Influenza Type A (PCR) Influenza B (RT-PCR) Flu b negative Influenza Type B (PCR) M. pneumoniae (PCR) Parainfluenza 1 (PCR) Parainfluenza 2 (PCR) Parainfluenza 3 (PCR) Parainfluenza 4 (PCR) RSV (PCR) Entero/Rhino (PCR) 11/29/19 11/29/19 11/29/19 04:50 04:50 10:00 WBC 4.1 L RBC 4.83 Hgb 15.9 Hct 46.2 MCV 95.8 MCH 32.9 MCHC 34.4 RDW 12.6 Plt Count 92 L Neut % (Auto) 52.9 Lymph % (Auto) 35.5 [place] % (Auto) 10.7 Eos % (Auto) 0.1 L Baso % (Auto) 0.8 Neut # (Auto) 2200 Lymph # (Auto) 1500 [place] # (Auto) 400 Eos # (Auto) 0 Baso # (Auto) 0 Sodium 135 L Potassium 4.7 Chloride 101 Carbon Dioxide 28 BUN 9 Creatinine 0.96 Estimated GFR > 60.0 BUN/Creatinine Ratio 9.4 Glucose 101 Calcium 8.3 L Total Bilirubin 0.5 AST 89 H ALT 56 H Alkaline Phosphatase 40 CK-MB (CK-2) CK-MB (CK-2) Rel Index Troponin I 0.024 C-Reactive Protein 4.4 H NT-Pro-B Natriuret Pep Total Protein 6.5 Albumin 3.7 Globulin 2.8 Albumin/Globulin Ratio 1.3 Procalcitonin Chlamy pneumoniae PCR Not detected Adenovirus (PCR) Not detected B.parapertussis DNA PCR Not detected Coronavirus OC43 (PCR) Not detected Coronavirus HKU1 (PCR) Not detected Coronavirus 229E (PCR) Not detected Coronavirus NL63 (PCR) Not detected Human Metapneumovir PCR Not detected Influenza A (RT-PCR) Influenza Type A (PCR) Not detected Influenza B (RT-PCR) Influenza Type B (PCR) Not detected M. pneumoniae (PCR) Not detected Parainfluenza 1 (PCR) Not detected Parainfluenza 2 (PCR) Not detected Parainfluenza 3 (PCR) Not detected Parainfluenza 4 (PCR) Not detected RSV (PCR) Not detected Entero/Rhino (PCR) Not detected Assessment & Plan Assessment & Plan narrative: Vlad Gan is a 64-year-old male without any significant medical history other than seasonal allergies who presented to the ED for shortness of breath and fever with to known exposures to COVID-19. 1. Presumed acute Covid 19 viral pneumonia, present on admission. Active. -patient presented with fever, progressive shortness of breath and tachypnea with to known exposures to COVID 19. -Continue respiratory therapy evaluation and treatment. May use supplemental oxygen as necessary to maintain oxygen saturations 92%. Patient is not requiring oxygen and saturating in the mid 90s. The patient's tachypnea has resolved. Continue close oxygen monitoring. -Continue hydroxychloroquine 500 mg twice daily and azithromycin 500 mg x 3 doses. -Respiratory PCR negative. Influenza a and B negative. COVID 19 PCR pending. With his classic CT appearance and his multiple direct exposures he is unlikely to be negative for Covid 19 and in fact a negative result should probably be considered a false negative. -Continue respiratory droplet isolation and precautions. -CTA chest demonstrated multiple bilateral ground glass opacities. No evidence of PE. 2. Mild transaminitis, acuity unknown, present on admission. Active. -Possibly due to alcohol use versus suspected COVID-19 infection. -Initial AST elevated at 82 and ALT normal at 48. LFTs trending up AST 89 and ALT 56. -Continue to monitor LFTs daily. 3. Alcohol dependence, chronic, present on admission. Stable. -Patient consumes alcohol daily. Patient denies any history of alcohol withdrawal, DTs or alcohol withdrawal seizure. -Continue to monitor closely for alcohol withdrawal and initiate CIWA protocol if present. Code status: Full code DVT prophylaxis: Enoxaparin Disposition: Patient likely to discharge home possibly tomorrow if he is not requiring oxygen.
[2019-11-29] MEDS: guaiFENesin ER 600 MG TAB 1200 MG PO (20:47)
--- NOTE | 2019-11-29 22:29 | PC.NURSE ---
2220 Lab called pt COVID 19 came back positive, Provider Diego Oquendo notified, no further needs at this time, will continue to monitor
[2019-11-30 01:00] VITALS: BP 133/70; PULSE 58; RESP 28; TEMP 37; O2SAT 94
[2019-11-30] MEDS: BENZONATATE 100 MG CAPSULE PO (01:11)
[2019-11-30] MEDS: ACETAMINOPHEN 325 MG TABLET 650 MG PO (01:11)
[2019-11-30 04:57] LABS: Add Manual Diff / Slide Review NO; Basophils Absolute Auto 0 /uL (0-100); Basophils Percent Auto 0.7 % (0-2); Eosinophils Absolute Auto 0 /uL (0-450); Eosinophils Percent Auto 0.2 % (2-4); Hematocrit 45.6 % (41-53); Hemoglobin 15.9 g/dL (13.5-17.5); Lymphocytes Absolute Auto 1300 /uL (1100-4500); Lymphocytes Percent Auto 28.8 % (25-40); Mean Corpuscular HGB Conc 34.8 % (30-36); Mean Corpuscular Hemoglobin 33.3 PG (26-34); Mean Corpuscular Volume 95.7 fL (80-100); Monocytes Absolute Auto 400 /uL (0-900); Monocytes Percent Auto 9.8 % (3-14); Neutrophils Absolute Auto 2800 /uL (1500-7000); Neutrophils Percent Auto 60.5 % (50-75); Platelet Count 95 X10^3/uL (150-400); Red Blood Cell Count 4.77 X10^6/uL (4.5-5.9); Red Cell Distribution Width 12.5 % (11.6-14.8); White Blood Cell Count 4.6 X10^3/uL (4.5-11.0)
[2019-11-30 05:00] VITALS: BP 102/59; PULSE 52; RESP 19; TEMP 37.2; O2SAT 93
[2019-11-30 05:06] LABS: Alanine Aminotransferase 100 IU/L (<50); Albumin 3.7 g/dL (3.5-5.0); Albumin Globulin Ratio 1.3 (1.0-2.8); Alkaline Phosphatase 44 U/L (38-126); Aspartate Aminotransferase 152 IU/L (17-59); BUN Creatinine Ratio 12.5 (6-22); Bilirubin Total 0.5 mg/dL (0.2-1.3); Blood Urea Nitrogen 11 mg/dL (9-20); Calcium 8.4 mg/dL (8.4-10.2); Carbon Dioxide 26 mmol/L (22-32); Chloride 102 mmol/L (98-107); Estimated Glomerular Filt Rate > 60.0 mL/min (>60); Globulin 2.9 g/dL (1.7-4.1); Glucose 108 mg/dL (80-110); HEMOLYSIS < 15 (0-50); Magnesium 2.1 mg/dL (1.6-2.3); Potassium 4.3 mmol/L (3.4-5.1); Sodium 134 mmol/L (137-145); Total Protein 6.6 g/dL (6.3-8.2)
[2019-11-30 05:49] LABS: Procalcitonin 0.71 ng/mL (<0.5)
--- NOTE | 2019-11-30 06:37 | PC.NURSE ---
Blacktop Spreader Note-Patient is fatigued with decreased appetite, encouraged fluids, NS still infusing at 50ml/hr. Has been afebrile, Tylenol given for headache. SpO2 >92% on RA, did not require O2, RR 20s, non-productive dry cough.
[2019-11-30] MEDS: LORATADINE 10 MG TABLET PO (08:27)
[2019-11-30] MEDS: HYDROXYCHLOROQUINE 200 MG TABLET PO (08:27)
[2019-11-30] MEDS: AZITHROMYCIN 250 MG TABLET 500 MG PO (08:28)
[2019-11-30] MEDS: ENOXAPARIN 40 MG/0.4 ML SYRINGE SUBCUT (08:28)
[2019-11-30] MEDS: guaiFENesin ER 600 MG TAB 1200 MG PO (08:28)
[2019-11-30 08:30] VITALS: BP 134/71; PULSE 57; RESP 24; TEMP 36.9; O2SAT 94
--- NOTE | 2019-11-30 09:08 | PC.NURSE ---
Addendum entered by Yanique Cortez R.N. 11/30/19 14:49: Removed PIVx2, Education provided about self isolation and returning with worsening symptoms. Wheeled to Private vehicle, isolation procedure followed. Addendum entered by Yanique Cortez R.N. 11/30/19 12:51: Pt states he is reluctant to d/c home , reports continued fatigue. SOB noted with ambulation, discussed time needed for recovery. Pt indep in room and on RA overnight, as well as this shift. Original Note: AM shift Pt is A/o x4, RA overnight, afebrile, VSS. THough cheeks are flushed. Indep in room, but reports increased SOB with activity and fatigue significant from baseline. Pt is usually a healthy/active adult, per his description. Lungs remains insp. wheeze and nonproductive cough. Tessalon pearls given per request.
--- NOTE | 2019-11-30 10:51 | CM.DPC ---
DCP Discharge Home Per MD, pt is positive for COVID-19 but medically stable to d/c home with home isolation recommendations. Per RN, pt seems to have non labored breathing and on room air but still somewhat fatigued. SW called pt's room phone due to his positive test results for COVID and explained role and pt confirms that he is still below baseline but feels stable to d/c home with spouse in isolation to fully recover from home and aware that if he declines medically after d/c to call and come back to the hospital. Pt states he's updated his spouse on likely d/c today and she can provide transport and they are aiming for afternoon to leave the hospital. Pt does not anticipate any SW needs at this time. Plan: Patient to likely d/c home via spouse POV this afternoon and to remain on home isolation due to positive COVID 19 test results. CHINYERE Bolaños
[2019-11-30 10:54] LABS: COVID19 Sendout Detected (Not Detected)
[2019-11-30 12:00] VITALS: BP 139/71; PULSE 54; RESP 22; TEMP 37.4; O2SAT 95
--- NOTE | 2019-11-30 14:10 | PM.DS.1 ---
History of Present Illness History of Present Illness Date Patient Seen: 11/28/19 Chief complaint: Exposed to Covid 19, SOB/Cough/Fever Narrative: Written by Dr. Johnson: This is a 64 year old male with a fever of 104.3 and shortness of breath. He has had 2 direct Covid19 exposures this past week. At baseline he is quite healthy with only seasonal allergies and allergy medicines used prn. He lives during the week in [place] where he works for the [employer] and then on the weekend lives up here. During the last week he has been exposed to 2 cases of suspected Covid19 including his (mild symptoms) who participated in a choir practice that has led to at least 30 positive doss virus tests and 1 earlier today. He also was exposed through a contractor who's child apparently had the disease this last week. He developed a fever of 104. 3 on November 15 with the 1st symptom being runny nose and just a very mild cough. He presented to the emergency department today because he was becoming more short of breath. His CRP is 4.3 with a classic ground-glass appearance on the chest CT. He is at 95% on room air but appears to be mildly dyspneic and tachypneic in the 30-40 range on presentation. His white count is 4.4 with negative influenza testing and a procalcitonin of 0.08. The CRP is elevated at 4.3. Discharge Providers Provider Date of admission: 11/28/19 20:03 Discharge Date: 11/30/19 Discharge provider: Kacie Styles DO Summary Hospital Course Discharge Diagnosis: 1. Acute COVID 19 viral pneumonia, present on admission. Active. 2. Mild transaminitis, acuity unknown, present on admission. Active. 3. Alcohol dependence, chronic, present on admission. Stable. Hospital Course: Vlad Gan is a 64-year-old male without any significant medical history other than seasonal allergies who presented to the ED for shortness of breath and fever with to known exposures to COVID-19. 1. Acute COVID 19 viral pneumonia, present on admission. Active. -Patient presented with fever, progressive shortness of breath and tachypnea with two known exposures to COVID 19. -CTA chest demonstrated multiple bilateral ground glass opacities. No evidence of PE. -Respiratory PCR negative. Influenza a and B negative. COVID 19 PCR positive. -Continued respiratory droplet isolation precautions. -Continued respiratory therapy evaluation and treatment. May use supplemental oxygen as necessary to maintain oxygen saturations 92%. Patient did not require oxygen throughout hospitalization and maintained his oxygen saturations in the mid 90s. The patient's tachypnea has resolved. Continued close oxygen monitoring. -Continued supportive therapy including: Mucinex 1200 mg twice daily, Tessalon Perles 100 mg 3 times daily as needed for cough, Cepacol lozenges 1 lozenge every 4 hours as needed for cough, loratadine 10 mg daily for seasonal allergies, albuterol inhaler 1 puff every 6 hours as needed for shortness of breath or wheezing, and Acapella 10 times every hour while awake. -Continued hydroxychloroquine 500 mg twice daily until time of discharge. Received azithromycin 500 mg x 3 doses. 2. Mild transaminitis, acuity unknown, present on admission. Active. -Possibly due COVID-19 infection versus alcohol use. -Initial AST elevated at 82 and ALT normal at 48. LFTs trending up AST 89 and ALT 56. -Continued to monitor LFTs daily. 3. Alcohol dependence, chronic, present on admission. Stable. -Patient consumes alcohol daily. Patient denies any history of alcohol withdrawal, DTs or alcohol withdrawal seizure. -Continued to monitor closely for alcohol withdrawal and initiate CIWA protocol if present. Exam Vital Signs (past 8 hours): - 11/30/19 08:30 11/30/19 12:00 Temperature 98.5 F 99.4 F Pulse Rate 57 L 54 L Respiratory Rate 24 22 Blood Pressure 134/71 139/71 Pulse Oximetry 94 95 Oxygen Delivery Method Room Air Oxygen Flow Rate 0 Narrative Exam Narrative: General: Older male lying in bed and in no acute distress, appears older than stated age and acutely ill, well-developed, well-nourished, appropriately interactive. HEENT: Normocephalic, atraumatic. External ears without defect. Pupils equal, round, and reactive to light. Anicteric sclerae, moist conjunctivae, and no lid lag. Oropharynx free of erythema and cobble stoning with moist mucosa. Neck: Supple with full range of motion. No lymphadenopathy or thyromegaly. Cardiovascular: Regular rate and rhythm without murmurs, rubs, or gallops appreciated Pulmonary: Improved aeration but still slightly diminished and clear to auscultation bilaterally no crackles, wheezes or rhonchi. Normal respiratory effort with no use of accessory muscles. Slight splinting. Abdomen: Soft, bowel sounds present, nontender, nondistended. No hepatosplenomegaly or masses appreciated. Extremities: No clubbing, cyanosis, or edema. Skin: Normal temperature, turgor, and texture; no rash, ulcers, or subcutaneous nodules appreciated. Neurological: Cranial nerves grossly intact. Psychiatric: Slightly anxious mood and normal affect. Alert and oriented to person, place, and time. Objective Labs Result Diagrams: 11/30/19 04:36 11/30/19 04:36 Labs: Laboratory Results - last 24 hr 11/28/19 11/30/19 11/30/19 18:00 04:36 04:36 WBC 4.6 RBC 4.77 Hgb 15.9 Hct 45.6 MCV 95.7 MCH 33.3 MCHC 34.8 RDW 12.5 Plt Count 95 L Neut % (Auto) 60.5 Lymph % (Auto) 28.8 [place] % (Auto) 9.8 Eos % (Auto) 0.2 L Baso % (Auto) 0.7 Neut # (Auto) 2800 Lymph # (Auto) 1300 [place] # (Auto) 400 Eos # (Auto) 0 Baso # (Auto) 0 Sodium Potassium Chloride Carbon Dioxide BUN Creatinine Estimated GFR BUN/Creatinine Ratio Glucose Calcium Magnesium Total Bilirubin AST ALT Alkaline Phosphatase Total Protein Albumin Globulin Albumin/Globulin Ratio Procalcitonin 0.71 H COVID-19 PCR Detected A 11/30/19 04:36 WBC RBC Hgb Hct MCV MCH MCHC RDW Plt Count Neut % (Auto) Lymph % (Auto) [place] % (Auto) Eos % (Auto) Baso % (Auto) Neut # (Auto) Lymph # (Auto) [place] # (Auto) Eos # (Auto) Baso # (Auto) Sodium 134 L Potassium 4.3 Chloride 102 Carbon Dioxide 26 BUN 11 Creatinine 0.88 Estimated GFR > 60.0 BUN/Creatinine Ratio 12.5 Glucose 108 Calcium 8.4 Magnesium 2.1 Total Bilirubin 0.5 AST 152 H ALT 100 H Alkaline Phosphatase 44 Total Protein 6.6 Albumin 3.7 Globulin 2.9 Albumin/Globulin Ratio 1.3 Procalcitonin COVID-19 PCR Discharge Plan Discharge Plan Patient Disposition: Home Discharge comment: You're being discharged home. You have a mild case of COVID 19 viral pneumonia. You will need to remain in self isolation until you're at least 3 days without fever (without the aid of medication such as Tylenol or Ibuprofen), you have improvement in your respiratory symptoms, and 7 days have elapsed since your symptoms first developed. If you go out into public after this you will need to wear mask at all times until your symptoms have resolved or until 14 days after illness onset. Please try to stay well hydrated get plenty of rest. You may take Tylenol as directed on bottle and as needed for fever and/or muscle aches. Please do not take ibuprofen or any NSAID as early studies show this has been associated with bad outcomes in novel coronavirus. You have been prescribed azithromycin 500 mg for 1 additional dose for lung anti-inflammatory effects, albuterol inhaler 1 puff 4 times daily as needed for shortness of breath or wheezing, Tessalon Perles 100 mg 3 times daily as needed for cough, Cepacol lozenge every 4 hours as needed for cough, Mucinex 1200 mg twice daily to thin mucus secretions and aid in sputum expectoration. You have been given and Acapella to help with sputum expectoration. Discharge orders & Medications Prescriptions: New azithromycin [Zithromax Z-Juan Luis] 250 mg Tablet 500 mg PO DAILY Qty: 1 RF: 0 benzonatate 100 mg Capsule 100 mg PO TID PRN (Reason: Cough) Qty: 20 RF: 0 loratadine 10 mg Tablet 10 mg PO DAILY Qty: 30 RF: 0 Cepacol Sore Throat (edgard-men) 15-3.6 mg Lozenge 1 ea PO Q4HR PRN (Reason: Cough) Qty: 10 RF: 0 guaifenesin [Mucus Relief ER] 600 mg Tablet Extended Release 12hr 1,200 mg PO BID Qty: 20 RF: 0 albuterol sulfate 90 mcg/actuation HFA aerosol inhaler 1 inhalation INHALATION QID PRN (Reason: shortness of breath or wheezing) Qty: 18 RF: 0 Continued acetaminophen [Tylenol] 325 mg Capsule 650 mg PO QID PRN (Reason: fever / pain) RF: 0 Discontinued ibuprofen 600 mg Tablet 600 mg PO Q8H PRN (Reason: fever / pain) RF: 0 Diet/Activity/Treatments Diet: Diet as Tolerated and Regular Activity: Activity as tolerated Visit Report/Discharge Packet Instructions: DI for Pneumonia -- Adult, DI for Viral Syndrome
== END 2019-11-30 15:00 | disposition home or self-care (01) | DRG 195 ==
LOC: ED 19:59 → ICU 11-29 06:41 → AC 11-29 14:19 → ICU 11-30 09:45
PROVIDERS: Internal Medicine; Admitting Provider Family Medicine; Emergency Provider Emergency Medicine; Visit Provider Family Medicine
DX: J12.89 Other viral pneumonia (principal); B97.29 Other coronavirus as the cause of diseases classified elsewhere; F10.20 Alcohol dependence, uncomplicated
CPT/HCPCS: 36415; 71045; 71275; 80053; 81003; 82550; 82553; 83605; 83690; 83735; 83880; 84145; 84484; 85025; 85610; 85730; 86140; 87040; 87502; 87633; 87635; 93005; 94667; 94762; 96360; 99285; J1650

== ENCOUNTER → 2020-09-28 15:49 | Outpatient (CLI) | payer OTHER, SELFPAY ==
[2019-11-28 20:40] VITALS: BMI 29.7
[2020-09-28] MEDS: COVID-19 VACC #1, MRNA(MOD) 100 MCG/0.5 ML VIAL IM (15:56)
== END ==
PROVIDERS: Visit Provider Internal Medicine
DX: Z23 Encounter for immunization (principal)
CPT/HCPCS: 0011A; 91301

== ENCOUNTER → 2020-10-26 16:07 | Outpatient (CLI) | payer OTHER, SELFPAY ==
[2019-11-28 20:40] VITALS: BMI 29.7
[2020-10-26] MEDS: COVID-19 VACC #2, MRNA(MOD) 100 MCG/0.5 ML VIAL IM (16:21)
== END ==
PROVIDERS: Visit Provider Internal Medicine
DX: Z23 Encounter for immunization (principal)
CPT/HCPCS: 0012A; 91301

== ENCOUNTER → 2023-06-15 15:39 | Outpatient (CLI) | payer MEDICARE, SELFPAY ==
[2023-03-03 15:43] VITALS: BMI 29.7
[2023-06-15 16:31] LABS: Add Manual Diff / Slide Review NO; Basophils Absolute Auto 0 /uL (0-100); Basophils Percent Auto 0.4 % (0-2); Eosinophils Absolute Auto 100 /uL (0-450); Eosinophils Percent Auto 1.2 % (2-4); Hematocrit 47.4 % (41-53); Hemoglobin 16.6 g/dL (13.5-17.5); Lymphocytes Absolute Auto 2300 /uL (1100-4500); Lymphocytes Percent Auto 32.6 % (25-40); Mean Corpuscular HGB Conc 35.1 % (30-36); Mean Corpuscular Hemoglobin 33.8 PG (26-34); Mean Corpuscular Volume 96.5 fL (80-100); Monocytes Absolute Auto 600 /uL (0-900); Monocytes Percent Auto 8.8 % (3-14); Neutrophils Absolute Auto 4000 /uL (1500-7000); Platelet Count 186 X10^3/uL (150-400); Red Blood Cell Count 4.92 X10^6/uL (4.5-5.9); Red Cell Distribution Width 12.7 % (11.6-14.8)
[2023-06-15 16:53] LABS: Alanine Aminotransferase 35 IU/L (<50); Albumin 4.5 g/dL (3.5-5.0); Albumin Globulin Ratio 1.5 (1.0-2.8); Alkaline Phosphatase 49 U/L (38-126); Aspartate Aminotransferase 40 IU/L (17-59); BUN Creatinine Ratio 21.1 (6-22); Bilirubin Total 0.6 mg/dL (0.2-1.3); Blood Urea Nitrogen 19 mg/dL (9-20); Calcium 9.7 mg/dL (8.4-10.2); Carbon Dioxide 30 mmol/L (22-32); Chloride 101 mmol/L (98-107); Cholesterol 239 mg/dL (140-199); Estimated Glomerular Filt Rate > 60 mL/min (>60); Glucose 87 mg/dL (80-110); HDL Cholesterol 71 mg/dL (40-60); HEMOLYSIS 31 (0-50); LDL Cholesterol Calculated 124 mg/dL (<100); Potassium 3.9 mmol/L (3.4-5.1); Sodium 139 mmol/L (137-145); Total Protein 7.5 g/dL (6.3-8.2); Triglycerides 218 mg/dL (35-150)
[2023-06-15 17:24] LABS: Prostate Specific Antigen Scrn 3.69 ng/mL (0.1-4.0)
[2023-06-15 17:52] LABS: HIV 1 & 2 Ab/Ag 4th Gen Combo NEGATIVE (NEGATIVE); Hep C Virus Ab w/Reflex Quant NEGATIVE s/c (NEGATIVE)
== END ==
PROVIDERS: PCP Family Medicine; Referring Provider Family Medicine; Visit Provider Family Medicine
DX: R74.8 Abnormal levels of other serum enzymes (principal); Z11.4 Encounter for screening for human immunodeficiency virus [HIV]; Z12.5 Encounter for screening for malignant neoplasm of prostate; Z00.00 Encounter for general adult medical examination without abnormal findings; D69.1 Qualitative platelet defects; H93.19 Tinnitus, unspecified ear; Z11.59 Encounter for screening for other viral diseases
CPT/HCPCS: 36415; 80053; 80061; 85025; 86803; 87389; G0103